=== PATIENT | female | born 2000 | race Caucasian/White ===

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

== ENCOUNTER → 2022-10-31 | Outpatient (CLI) | payer OTHER ==
[~2022-10-31] MED LIST changes: +HYDACE25S PR
[2022-11-01 10:58] LABS: Candida species (DNA Probe) Negative (NEGATIVE); G. vaginalis (DNA Probe) Positive (NEGATIVE); T. vaginalis (DNA Probe) Negative (NEGATIVE)
[2022-11-03 05:13] LABS: CHLAMYDIA TRACHOMATIS, NAA Negative (Negative)
== END ==
LOC: LAB 16:35 → LAB SHORT 16:35
PROVIDERS: Advanced Practice Midwife
DX: Z11.3 Encounter for screening for infections with a predominantly sexual mode of transmission (principal); N76.0 Acute vaginitis
CPT/HCPCS: 87480; 87491; 87510; 87591; 87660

== ENCOUNTER 2023-03-22 15:21 | Emergency (ER) | payer OTHER ==
[~2023-03-22] VITALS: Ht 165.1 cm; Wt 63.5 kg
[2023-03-22 15:28] VITALS: BP 142/97
== END 2023-03-22 17:15 | disposition home or self-care (01) ==
LOC: ER 15:21
DX: S09.90XA Unspecified injury of head, initial encounter (principal); M25.511 Pain in right shoulder; J45.909 Unspecified asthma, uncomplicated; F17.290 Nicotine dependence, other tobacco product, uncomplicated; W50.0XXA Accidental hit or strike by another person, initial encounter; Z88.2 Allergy status to sulfonamides; Z79.899 Other long term (current) drug therapy
CPT/HCPCS: 70450; 70486; 73030; 96372; 99284-25; A9270; J1885

== ENCOUNTER → 2023-11-09 | Outpatient (CLI) | payer OTHER ==
[~2023-11-09] MED LIST changes: +CRUTCH4 XX
== END ==
LOC: LAB SHORT 10:51 → LAB 10:51
PROVIDERS: Advanced Practice Midwife
DX: Z01.419 Encounter for gynecological examination (general) (routine) without abnormal findings (principal)
CPT/HCPCS: G0123

== ENCOUNTER 2023-12-20 08:49 | Emergency (ER) | payer OTHER ==
[~2023-12-20] VITALS: Ht 165.1 cm; Wt 77.1 kg
[2023-12-20] MEDS ORDERED: Ondansetron HCl 2 MG / ML 2ML Vial IV ONE (09:55)
[2023-12-20] MEDS ORDERED: NS 1,000 ML IV SCH (09:55)
[2023-12-20 11:31] VITALS: BP 116/82
== END 2023-12-20 11:29 | disposition home or self-care (01) ==
LOC: ER 08:49
DX: A08.4 Viral intestinal infection, unspecified (principal); Z79.899 Other long term (current) drug therapy; J45.909 Unspecified asthma, uncomplicated
CPT/HCPCS: 96361; 96374; 99284-25; J2405; J7030

== ENCOUNTER → 2024-06-05 | Outpatient (CLI) | payer OTHER ==
[2024-06-05 19:20] LABS: Bacterial Vaginosis PCR Negative (NEGATIVE); Candida Group, PCR NOT DETECTED (NOT DETECT); Candida glabrata-krusei, PCR NOT DETECTED (NOT DETECT)
[2024-06-05 19:52] LABS: Chlamydia Trachomatis Cervix NOT DETECTED (NOT DETECT); Neisseria Gonorrhoea Cervix NOT DETECTED (NOT DETECT)
== END ==
LOC: LAB SHORT 15:09 → LAB 15:09
PROVIDERS: Obstetrics & Gynecology
DX: Z11.3 Encounter for screening for infections with a predominantly sexual mode of transmission (principal); N76.0 Acute vaginitis
CPT/HCPCS: 81515; 87491; 87591

== ENCOUNTER 2024-11-21 13:27 | Emergency (ER) | payer OTHER ==
[~2024-11-21] VITALS: Ht 167.6 cm; Wt 86.2 kg
[2024-11-21 13:52] VITALS: BP 113/89
== END 2024-11-21 14:25 | disposition home or self-care (01) ==
LOC: ER 13:27
DX: S60.221A Contusion of right hand, initial encounter (principal); J45.909 Unspecified asthma, uncomplicated; W22.8XXA Striking against or struck by other objects, initial encounter; Z79.899 Other long term (current) drug therapy; Z88.2 Allergy status to sulfonamides
CPT/HCPCS: 73130; 99283-25

== ENCOUNTER 2025-03-03 17:45 | Emergency (ER) | payer OTHER ==
[~2025-03-03] VITALS: Ht 165.1 cm; Wt 90.7 kg
[2025-03-03 18:53] VITALS: BP 128/87
== END 2025-03-03 19:05 | disposition home or self-care (01) ==
LOC: ER 17:45
DX: S60.221A Contusion of right hand, initial encounter (principal); W22.09XA Striking against other stationary object, initial encounter; J45.909 Unspecified asthma, uncomplicated; F17.290 Nicotine dependence, other tobacco product, uncomplicated; Z88.2 Allergy status to sulfonamides; Z79.899 Other long term (current) drug therapy
CPT/HCPCS: 73130; 99283-25